=== PATIENT | male | born 1960 | race Caucasian/White ===

== ENCOUNTER 2024-05-02 03:29 | Emergency (ER) | payer BC ==
[~2024-05-02] VITALS: Ht 177.8 cm; Wt 145.5 kg
[2024-05-02] MEDS ORDERED: LOPRESSOR 550 MG/TAB PO (03:46)
[2024-05-02] MEDS ORDERED: ATORVASTATIN CA40 MG PO (03:46)
[2024-05-02] MEDS ORDERED: LEVOTHYROXINE100 MC1 PO (03:48)
[2024-05-02] MEDS ORDERED: PANTOPRAZOLE SO40 MG PO (03:48)
[2024-05-02] MEDS ORDERED: CARDIZEM CD 24240 MG PO (03:48)
[2024-05-02] MEDS ORDERED: METOPROLOL TAR100 M1 PO (03:48)
[2024-05-02] MEDS ORDERED: TRAMADOL 50 MG TAB PO (03:49)
[2024-05-02] MEDS ORDERED: ZESTRIL5 M1 PO (03:49)
[2024-05-02] MEDS ORDERED: TORSEMIDE20 M1 PO (03:50)
[2024-05-02 04:27] LABS: BASO # 0.03 K/mm3 (0.02-0.10); EOS # 0.17 K/mm3 (0.04-0.40); EOS % 1.8 % (0.0-4.0); HEMATOCRIT 41.4 % (42.0-52.0); HEMOGLOBIN 13.3 g/dL (13.5-18.0); LYMPH# 0.72 K/mm3 (1.50-4.00); MEAN CELL VOLUME 106 fl (78-100); MEAN CORPUSCULAR HEMOGLOBIN 34 pg (27-31); MEAN CORPUSCULAR HGB CONC 32 g/dL (33-37); MEAN PLATELET VOLUME 9.7 fl (7.4-10.4); MONO # 1.09 K/mm3 (0.20-0.80); NEU # 7.53 K/mm3 (1.40-6.50); PLATELET COUNT 263 K/mm3 (130-400); WHITE BLOOD COUNT 9.6 K/mm3 (4.8-10.8)
[2024-05-02 04:29] LABS: ALBUMIN 4.1 g/dL (3.4-4.8)
[2024-05-02 04:30] LABS: CALCIUM 10.8 mg/dL (8.3-10.5)
[2024-05-02 04:31] LABS: TOTAL PROTEIN 8.5 g/dL (6.2-8.1)
[2024-05-02 04:33] LABS: TOTAL BILIRUBIN 1.6 mg/dL (0.2-1.2)
[2024-05-02] MEDS ORDERED: Ketorolac 30 MG/ML VIAL IM ONE (05:00)
[2024-05-02] MEDS ORDERED: methylPREDNISolone Sod Succ 125 MG/2 ML VIAL IM ONE (05:00)
[2024-05-02] MEDS ORDERED: KETOROLAC10 MG PO (05:30)
[2024-05-02] MEDS ORDERED: ALLOPURINOL200 MG PO (05:38)
[2024-05-02 05:41] VITALS: BP 108/65
== END 2024-05-02 05:41 | disposition home or self-care (01) ==
LOC: ED 03:29
PROVIDERS: Family Medicine
DX: M10.9 Gout, unspecified (principal); R79.82 Elevated C-reactive protein (CRP); R70.0 Elevated erythrocyte sedimentation rate; E66.01 Morbid (severe) obesity due to excess calories; Z87.891 Personal history of nicotine dependence
CPT/HCPCS: J1885; J2919